=== PATIENT | male | born 1995 ===

== ENCOUNTER 2019-01-09 03:15 | Emergency (ER) | payer SELFPAY ==
--- NOTE | 2019-01-09 03:52 | ED PDOC ---
HPI: Psych/Substance Abuse Time Seen by Provider: 01/09/19 03:39 Chief Complaint (Nursing): Alcohol Ingestion Chief Complaint (Provider): Alcohol Ingestion History Per: EMS History/Exam Limitations: intoxication Onset/Duration Of Symptoms: Hrs Current Symptoms Are (Timing): Still Present Suicide/Self Injury Attempted (Context): None Modifying Factor(s): Alcohol Additional Complaint(s): 23 y/o male with an unknown PMHx brought into the ED by EMS for alcohol intoxication. Patient admits to drinking tonight but is unsure of how many beers he had. Otherwise, patient offers no complaints at this time and denies drug use and injuries. PMD: no provider Past Medical History Reviewed: Historical Data, Nursing Documentation, Vital Signs Vital Signs: Last Vital Signs Temp 97.9 F 01/09/19 03:23 Pulse 115 H 01/09/19 03:23 Resp 18 01/09/19 03:23 BP 131/77 01/09/19 03:23 Pulse Ox 99 01/09/19 03:23 - Medical History PMH: No Chronic Diseases - Surgical History Surgical History: No Surg Hx - Family History Family History: States: Unknown Family Hx - Living Arrangements Living Arrangements: With Family - Allergies Allergies/Adverse Reactions: Allergies Allergy/AdvReac Type Severity Reaction Status Date / Time No Known Allergies Allergy Verified 01/09/19 03:31 Review of Systems ROS Statement: Except As Marked, All Systems Reviewed And Found Negative Psych: Positive for: Other (alcohol intoxication) Physical Exam - Reviewed Nursing Documentation Reviewed: Yes Vital Signs Reviewed: Yes - Physical Exam Appears: Positive for: No Acute Distress (intoxicated appearing) Head Exam: Positive for: ATRAUMATIC, NORMOCEPHALIC Skin: Positive for: Normal Color, Warm, Dry Eye Exam: Positive for: Normal appearance, EOMI, PERRL Neck: Positive for: Normal, Painless ROM, Supple Cardiovascular/Chest: Positive for: Regular Rate, Rhythm. Negative for: Murmur Respiratory: Positive for: Normal Breath Sounds. Negative for: Respiratory Distress Gastrointestinal/Abdominal: Positive for: Normal Exam, Soft. Negative for: Tenderness Back: Positive for: Normal Inspection. Negative for: L CVA Tenderness, R CVA Tenderness, Vertebral Tenderness Extremity: Positive for: Normal ROM. Negative for: Deformity Neurologic/Psych: Positive for: Alert, Oriented. Negative for: Motor/Sensory Deficits - Laboratory Results Result Diagrams: 01/09/19 06:40 01/09/19 06:40 - ECG O2 Sat by Pulse Oximetry: 99 (RA) Pulse Ox Interpretation: Normal Medical Decision Making Medical Decision Making: Time: 352 A/P: Patient presenting with alcohol intoxication without signs of injury. -- Patient's sister contacted and will spanish moss picker the patient from the ER. Time: 456 Plan: -- Alcohol Serum -- BMP -- Urine Drug Screen -- CBC with Differentials -- Ativan 2 mg IM Time: 07 -- Patient endorsed to Dr. Bush, pending sobriety. ____ Scribe Attestation: Documented by Bryan Altamirano, acting as a scribe for Reese Read MD. Provider Scribe Attestation: All medical record entries made by the Scribe were at my direction and personally dictated by me. I have reviewed the chart and agree that the record accurately reflects my personal performance of the history, physical exam, medical decision making, and the department course for this patient. I have also personally directed, reviewed, and agree with the discharge instructions and disposition. Disposition - Clinical Impression Clinical Impression: Alcohol abuse - Patient ED Disposition Is Patient to be Admitted: Transfer of Care - Disposition Referrals: Alcoholics Anonymous [Outside] Disposition: Transfer of Care Disposition Time: 07:00 Condition: IMPROVED Instructions: Alcohol Use - When Is Drinking a Problem? Forms: [facility] (Indonesian) Print Language: LATVIAN Patient Signed Over To: Do Bush Handoff Comments: pending sobriety
[2019-01-09 06:48] LABS: BASO % 0.6 % (0.0-2.0); EOS # 0.1 K/uL (0.0-0.7); EOS % 2.3 % (0.0-4.0); HEMOGLOBIN 15.7 g/dL (12.0-18.0); LYMPH # 2.9 K/uL (1.0-4.3); LYMPH % 48.3 % (20.0-40.0); MEAN CELL VOLUME 91.8 fl (80.0-94.0); MEAN CORPUSCULAR HEMOGLOBIN 31.6 pg (27.0-31.0); MEAN CORPUSCULAR HGB CONC 34.4 g/dL (33.0-37.0); MEAN PLATELET VOLUME 7.4 fl (7.2-11.7); MONO # 0.4 K/uL (0.0-0.8); MONO % 6.8 % (0.0-10.0); NEUT # 2.5 K/uL (1.8-7.0); NRBC % 0.1 % (0.0-0.0); RBC 4.97 Mil/uL (4.40-5.90); RED CELL DISTRIBUTION WIDTH 13.9 % (11.5-14.5); WHITE BLOOD COUNT 5.9 K/uL (4.8-10.8)
[2019-01-09 06:57] LABS: BLOOD UREA NITROGEN 14 mg/dl (9-20); CALCIUM 9.3 mg/dL (8.4-10.2); GFR NON-AFRICAN AMERICAN > 60
--- NOTE | 2019-01-09 07:20 | ED PDOC ---
- Laboratory Results Result Diagrams: 01/09/19 06:40 01/09/19 06:40 - ECG O2 Sat by Pulse Oximetry: 99 (RA) Medical Decision Making Medical Decision Making: Time: 0700 Patient endorsed to provider from Reese Read MD. Pending urine drug screen and sobriety. Time: 1200 Clinically sober. Able to ambulate. Discharge home. Scribe Attestation: Documented by Francesco Johnson, acting as a scribe for Do Bush MD. Provider Scribe Attestation: All medical record entries made by the Scribe were at my direction and personally dictated by me. I have reviewed the chart and agree that the record accurately reflects my personal performance of the history, physical exam, medical decision making, and the department course for this patient. I have also personally directed, reviewed, and agree with the discharge instructions and disposition. Disposition - Clinical Impression Clinical Impression: Alcohol abuse - POA Present On Arrival: None - Disposition Referrals: Alcoholics Anonymous [Outside] Disposition: Routine/Home Disposition Time: 12:00 Condition: IMPROVED Instructions: Alcohol Use - When Is Drinking a Problem? Forms: [employer] (Azeri) Print Language: URDU
[2019-01-09 12:18] VITALS: BP 116/61; PULSE 100; RESP 21; TEMP 99.4
[2019-01-09 12:28] VITALS: O2SAT 99
== END 2019-01-09 12:25 | disposition home or self-care (01) ==
LOC: EDBD 03:15 → H.ER 03:15
DX: F10.129 Alcohol abuse with intoxication, unspecified (principal)
CPT/HCPCS: 80048; 85025; 96372; 99284; G0480; J1630; J2060